=== PATIENT | male | born 1985 | race Caucasian/White ===

== ENCOUNTER 2018-04-24 16:16 | Emergency (ER) | payer SELFPAY ==
[~2018-04-24] VITALS: Ht 170.2 cm; Wt 85.9 kg
[2018-04-24 16:31] VITALS: BP 123/71
--- NOTE | 2018-04-24 16:39 | NUR ---
BREAK RN. PT AMBULATORY TO E FROM TRIAGE WITH STEADY GAIT. NAD NOTED. CMS INTACT. PULSE NORMAL AND STRONG. NO SWELLING NOTED. MARIAH ARMSTRONG AT BEDSIDE FOR EVALUATION. FALL PRECAUTIONS IN PLACE. SIDE RAILS UPX2. A&OX4.
--- NOTE | 2018-04-24 17:08 | NUR ---
BEDSIDE REPORT AND CARE BACK TO PRIMARY FELIPA MURILLO
== END 2018-04-24 17:51 | disposition home or self-care (01) ==
LOC: ED 17:45
DX: M25.462 Effusion, left knee (principal); M25.461 Effusion, right knee
CPT/HCPCS: 99283

== ENCOUNTER 2018-05-02 13:00 | Emergency (ER) | payer OTHER ==
[~2018-05-02] VITALS: Ht 167.6 cm; Wt 82.2 kg
[2018-05-02 13:43] VITALS: BP 116/69
--- NOTE | 2018-05-02 14:04 | NUR ---
FROM LOBBY TO ROOM AT [facility] TIME
--- NOTE | 2018-05-02 14:44 | NUR ---
BEING TAKEN FOR IMAGING
[2018-05-02] MEDS ORDERED: KETOROLAC 30 MG/1 ML ONE (15:33)
[2018-05-02] MEDS ORDERED: KETOROLAC 30 MG/1 ML IM ONE (16:00)
== END 2018-05-02 15:42 | disposition home or self-care (01) ==
LOC: ED 15:14
DX: M54.6 Pain in thoracic spine (principal); F17.200 Nicotine dependence, unspecified, uncomplicated
CPT/HCPCS: 71046; 96372; 99283; J1885